=== PATIENT | female | born 1995 ===

== ENCOUNTER 2019-12-11 21:50 | Emergency (ER) | payer SELFPAY ==
[2019-12-12] MEDS ORDERED: Lidocaine 1% w/Epinephrine 1:100K 20 ML VIAL ONE (00:14)
[2019-12-12] MEDS ORDERED: Bacitracin 1 PK ONE (00:51)
== END 2019-12-12 00:45 | disposition home or self-care (01) ==
LOC: ERS 21:50
DX: S81.811A Laceration without foreign body, right lower leg, initial encounter (principal); W45.8XXA Other foreign body or object entering through skin, initial encounter; Y93.74 Activity, frisbee
CPT/HCPCS: 12001